=== PATIENT | female | born 1980 | race Caucasian/White ===

== ENCOUNTER 2021-04-24 12:38 | Emergency (ER) | payer MEDICAID, SELFPAY ==
[2021-04-24 12:48] VITALS: BP 104/57; BP 112/72; PULSE 70; PULSE 72; RESP 16; O2SAT 98; BMI 20.5
--- NOTE | 2021-04-24 12:58 | ED.GENADULT ---
HPI - General Adult General Chief complaint: ETOH/Substance Use Stated complaint: not sleeping well, heroin use Time Seen by Provider: 04/24/21 12:58 Source: patient and EMS Mode of arrival: EMS Limitations: no limitations History of Present Illness HPI narrative: 40-year-old female came in for evaluation for possible overdose. This is a 40-year-old female history of drug abuse patient used 10 bags of heroin last night, patient claims that she has been tired not sleeping lost her best friend 2 weeks ago, patient was found by the police in her car sleeping. With pinpoint pupil, but patient was easily arousable. Patient otherwise declined headache, dizziness, chest pain, or abdominal pain. Related Data Allergies Allergy/AdvReac Type Severity Reaction Status Date / Time amoxicillin [AMOXICILLIN] Allergy Unknown DIARRHEA Unverified 06/13/20 16:55 Review of Systems Review of Systems: All other systems are reviewed and are negative Constitutional: Reports as per HPI and Reports no additional constitutional complaints Eyes: Reports as per HPI and Reports no additional eye complaints Reports system reviewed and no additional complaints, except as documented Cardiovascular: Reports as per HPI and Reports no additional cardiovascular complaints Respiratory: Reports as per HPI and Reports no additional respiratory complaints Gastrointestinal: Reports as per HPI and Reports no additional gastrointestinal complaints Genitourinary: Reports no additional female genitourinary complaints Musculoskeletal: Reports no additional musculoskeletal complaints Skin/Breast: Reports system reviewed and no additional complaints, except as docu Psychiatric: Reports no additional psychiatric complaints Endocrine: Reports no additional endocrine complaints Hematologic/Lymphatic: Reports no additional hematologic/lymphatic complaints Allergic/Immunologic: Reports no additional allergic/immunologic complaints Reports system reviewed and no additional complaints, except as documented and Reports Abnormal speech present Physical Exam Vital Signs: Vital Signs: Last Vital Signs Pulse 72 04/24/21 12:48 Resp 16 04/24/21 12:48 BP 104/57 L 04/24/21 12:48 Pulse Ox 98 04/24/21 12:48 Body Mass Index 20.5 Vital signs have been reviewed as appeared to be correct. Blood pressure normal. Heart rate normal. Respiration rate normal. Temperature normal. Oxygen saturation normal. Appearance: Alert. Oriented X3. No acute distress. Head: Normal external exam. Normocephalic. Atraumatic. No Benavides signs noted. No raccoon eyes noted Eyes: Pinpoint pupil. EOMI. Conjunctiva and sclera normal. Eyelids normal. ENT: TM's Normal. Pharynx normal. Uvula midline. Moist mucous membranes. No trismus noted. No drooling noted. No muffled voice noted. Neck: Normal inspection. Neck supple. FROM. No adenopathy. Thyroid Normal. No meningeal signs. No neck mass noted. CVS: Normal heart rate and rhythm. Heart sound normal. No murmurs noted. Pulses normal throughout. Respiratory: No respiratory distress. Painless inspiration. Breath sounds normal. No wheezes/rales/rhonchi noted. Chest nontender. No accessory muscle usage noted or decreased air movement noted. Abdomen: Soft and nontender. Bowel sounds normal in all 4 quadrants. No distention noted. No organomegaly noted. No visible injury noted. Back: No CVA tenderness. Full range of motion noted. Skin: Skin warm and dry. Normal skin color. Normal skin turgor. No rashes/lesions/lacerations noted. Extremities: No lower extremity edema. Extremities exhibit normal range of motion. Extremities nontender. Neuro: Oriented X 3. No motor deficit. No sensory deficit. Reflexes normal. Course Course Course Narrative: Assessment and plan. 40-year-old female found sleeping in the car, patient was known history of IV drug abuser, patient used them in bags of heroin last night but nothing today, patient was supposed to receive methadone today. Patient was in the emergency department able to maintain her airways with stable vital signs. Discharge Plan Discharge Clinical Impression: Substance abuse Patient Disposition: Home, Self-Care Instructions: Polysubstance Abuse (ED) Additional Instructions: Follow-up with your primary doctor.
--- NOTE | 2021-04-24 13:22 | PC.NURSE ---
CPD HAD MULTIPLE BAGS OF PTS BELONGINGS, THESE WERE BAGGED AND LABELED AND PLACED IN DECON. PT CONTINUES TO DENY SI, SHE REMAINS DROWSY BUT AROUSABLE
[2021-04-24 14:53] VITALS: BP 104/56; PULSE 66; RESP 12; TEMP 36.8; O2SAT 96
== END 2021-04-24 15:27 | disposition home or self-care (01) ==
LOC: HO.ED 13:23
PROVIDERS: Emergency Provider Emergency Medicine
DX: T40.1X1A Poisoning by heroin, accidental (unintentional), initial encounter (principal); F11.10 Opioid abuse, uncomplicated; Y92.9 Unspecified place or not applicable; Z71.51 Drug abuse counseling and surveillance of drug abuser
CPT/HCPCS: 99284

== ENCOUNTER 2023-05-12 15:34 | Outpatient (REF) | payer MEDICAID, SELFPAY | END 2023-05-12 15:35 | disposition home or self-care (01) | LOC: HO.CHCLNP 15:34 | PROVIDERS: Visit Provider General Practice | DX: N30.01 Acute cystitis with hematuria (principal) | CPT/HCPCS: 87086; 87088; 87186 ==

== ENCOUNTER 2024-05-29 03:43 | Emergency (ER) | payer MEDICAID, SELFPAY ==
--- NOTE | ~2024-05-29 | US_ITS ---
EXAMINATION: US TRIPLEX LOWER EXTREMITY, LEFT CLINICAL INFORMATION: Left extremity swelling COMPARISON: None available. TECHNIQUE: Color-flow triplex imaging with spectral analysis and compression Doppler were performed on the left lower extremity. FINDINGS: Respiratory variation, normal compression and augmented flow are noted throughout the left lower extremity. The visualized common femoral vein, superficial femoral vein, profunda femoral vein, popliteal vein and midcalf peroneal and posterior tibial venous segments show no evidence of deep venous thrombosis. In the gastric region there is a complex fluid collection likely abscess measuring 5.8 x 2.1 x 2.7 cm. There is a site of cocaine injection as per patient. There is abnormal solitary lymph node seen in the left thigh measuring 3.4 x 1.1 x 1.7 cm. There is no Loera's cyst. US/US venous duplex LE LT IMPRESSION: 1. No evidence of deep venous thrombosis involving the left lower extremity. 2. Complex fluid collection in the left thigh likely abscess. 3. Abnormal solitary lymph node left thigh. Electronically signed by: David Can MD 05/29/2024 08:06 AM EDT RP
--- NOTE | ~2024-05-29 | XR_ITS ---
EXAMINATION: XR TIBIA/FIBULA, LEFT CLINICAL INDICATION: Abscess COMPARISON: None TECHNIQUE: AP and lateral views. FINDINGS: Osseous alignment is anatomic. No acute fracture is seen. There is focal soft tissue swelling medially adjacent to the proximal tibia. There is suggestion of a skin ulceration anteriorly at the level of the mid tibia, for which clinical correlation is recommended. Mild diffuse subcutaneous edema/reticulation also noted. XR/XR tibia fibula LT 2V IMPRESSION: 1. Focal soft tissue swelling medially adjacent to the proximal tibia; considerations include infection/abscess or hematoma in the proper clinical setting. 2. Suggestion of skin ulceration anteriorly at the level of the mid tibia, for which clinical correlation is recommended. Electronically signed by: Ean Marquez MD 05/29/2024 08:06 AM EDT
[2024-05-29 03:46] VITALS: BP 101/64; PULSE 83; RESP 20; TEMP 36.6; O2SAT 96; BMI 20.1
--- OUTSIDE RECORDS SUMMARY | 2024-05-29 05:00 | XMS_ITS | Continuity of Care Document ---
Author Organization [facility] Address [address] [place] [address]- Care Team Providers Care Coiled Tubing Supervisor Name Role Phone Ana Huddleston MD, Aleksey Primary Care Phys ician [place] [facility] [id number] Date(s): 07/10/20 - 09/19/20 [facility] [address] [place] [id number] Attending Physician: Kain Wise MD Admitting Physician: Kain Wise MD Referring Physician: Aleksey Ascencio MD Allergies, Adverse Reactions, Alerts Substance Reaction Severity Status NKA Active Medications Bicillin L-A 2,400,000 units/4 mL intramuscular suspension = 2.4 million_units, Intramuscular, Once, # 1 each, 0 Refills, Soft Stop, 04/03/20 15:42:00 EDT, Suspension Start Date: 04/03/20 Status: Ordered Duoneb Inhalation Solution 1, vials, Neb, Every 4 hours, PRN, Refills 0, Maintenance, 03/27/20 14:11:00 EDT, Inhalation Solution Start Date: 03/27/20 Status: Ordered ferrous sulfate 325 mg oral enteric coated tablet 325 mg, By Mouth, Daily, Refills 0, Maintenance, 03/27/20 14:11:00 EDT Start Date: 03/27/20 Status: Ordered ibuprofen 600 mg oral tablet 1 tablet = 600 mg, By Mouth, 4 times a day, PRN Pain , Moderate, # 56 tablet, 1 Refills, Maintenance Start Date: 12/17/11 Stop Date: 01/14/12 Status: Ordered Methadone = 71 mg, By Mouth, 0 Refills, Maintenance, 03/15/20 15:07:00 EDT, Partial fill upon patient request Start Date: 03/15/20 Status: Ordered Multivit Therapeutic/Minerals Tablet 1 tablet, By Mouth, Daily, 0 Refills, Maintenance, 03/27/20 14:12:00 EDT, Tablet Start Date: 03/27/20 Status: Ordered thiamine 100 mg oral tablet 100 mg, 1, tablet, By Mouth, Daily, Refills 0, Maintenance, 03/27/20 14:12:00 EDT Start Date: 03/27/20 Status: Ordered Vitamin C Tablet = 500 mg, By Mouth, Daily, 0 Refills, Maintenance, 03/27/20 14:11:00 EDT, Tablet Start Date: 03/27/20 Status: Ordered
--- OUTSIDE RECORDS SUMMARY | 2024-05-29 05:01 | XMS_ITS | Continuity of Care Document ---
Author Organization [facility] ter Address [address] [place] [address]- Care Team Providers Care Supervisor Briar Shop Name Role Phone Ana Huddleston MD, Aleksey [facility] En[facility] [place] Date(s): 11/12/21 - 11/12/[address] [address]- Discharge Disposition: A-D/C Home Attending Physician: Patti Zamudio DO Admitting Physician: Patti Zamudio DO Referring Physician: Not on Staff, Referring MD Allergies, Adverse Reactions, Alerts Substance Reaction Severity Status HYDROcodone 1 Active 1pt flips like a fish when taking hydrocodone Immunizations Given and Recorded Vaccine Date Status Refusal Reason SARS-CoV-2 (COVID-19) Ad26 vaccine 02/07/21 Record ed Medications Bactrim DS 800 mg-160 mg oral tablet 1 tablet, By Mouth, 2 times a day, for 7 days, drink plenty of fluids Dosage expressed as trimethoprim, # 14 tablet, 0 Refills, Acute 11/19/21 13:43:00 EST, 11/12/21 13:43:00 EST, Tablet, [id number], Partial fill upon patient request if the p... Start Date: 11/12/21 Stop Date: 11/19/21 Status: Ordered Bactrim DS 800 mg-160 mg oral tablet 1 tablet, By Mouth, 2 times a day, for 7 days, Dosage expressed as trimethoprim drink plenty of fluids, # 14 tablet, 0 Refills, Acute 11/19/21 14:18:00 EST, 11/12/21 14:18:00 EST, Tablet, [id number], Partial fill upon patient request if the p... Start Date: 11/12/21 Stop Date: 11/19/21 Status: Ordered Methadone = 60 mg, By Mouth, Daily, 0 Refills, Maintenance, 03/15/20 15:07:00 EDT, Partial fill upon patient request Start Date: 03/15/20 Status: Ordered Vital Signs Most recent to oldest [Reference Range]: 1 Height 173 cm (11/12/21 12:48 PM) Weight 61.3 kg (11/12/21 12:48 PM) Oxygen Saturation [94-100 %] 98 % (11/12/21 12:48 PM) Pulse Rate [55-90 bpm] 100 bpm *H* (11/12/21 12:48 PM) Body Mass Index [18.5-24.99] 20.48 (11/12/21 12:48 PM) Blood Pressure [90-138/55-84 mm Hg] 95/5 3mm Hg (11/12/21 12:48 PM) Respiratory Rate [16-30 br/min] 14 br/mi n *L* (11/12/21 12:48 PM) Temperature [96.8-100.4 DegF] 98.3 DegF (11/12/21 12:48 PM) Mode of Delivery (Oxygen) Room air (11/12/21 12:48 PM) Blood pressure sites Arm, right (11/12/21 12:48 PM) Temperature Route Oral (11/12/21 12:48 PM) Dry Weight 61.3 kg (11/12/21 12:48 PM) Weight Obtained Via Patient/family state d (11/12/21 12:48 PM) Dry Weight Obtained Via Patient/family s tated (11/12/21 12:48 PM)
--- OUTSIDE RECORDS SUMMARY | 2024-05-29 05:01 | XMS_ITS | Continuity of Care Document ---
Author Organization [facility] Infect[facility] Disease Address [address] [place] [address]- Care Team Providers Care Wing Commander Name Role Phone Ana Huddleston MD, Aleksey Primary Care Phys [facility] Encounter [facility] Date(s): 05/21/20 - 06/20/20 [facility] [address] [place] [address]- [facility] Attending Physician: Ely Luna Admitting Physician: AdmEly moore Referring Physician: Admtr, Ar8 Allergies, Adverse Reactions, Alerts Substance Reaction Severity [...]
--- OUTSIDE RECORDS SUMMARY | 2024-05-29 05:01 | XMS_ITS | Continuity of Care Document ---
Author Organization [facility] Address [address] [place] [address]- Care Team Providers Care Relay Dispatcher Name Role Phone Ana Huddleston MD, Aleksey Primary Care Phys [facility] Encounter [facility] [place] 08/20/20 - 09/19/20 [facility] [address] [place], [place] [address] Attending Physician: Ely Luna Admitting Physician: AdmtrEly Referring Physician: Admtr, Ar8 Allergies, Adverse Reactions, [...]
--- OUTSIDE RECORDS SUMMARY | 2024-05-29 05:01 | XMS_ITS | Continuity of Care Document ---
Author Organization [facility] ter Address [address] [place] [address]- Care Team Providers Care Machine Cutter Name Role Phone Ana Huddleston MD, Aleksey [facility] [place] [facility] [place](s): 03/15/20 - 03/27/[address] [address]- [facility] Discharge Disposition: Transfer Vp Treasurer Care Attending Physician: Joaquim Martinez MD Admitting Physician: Pastor Neves MD Referring Physician: Pastor Neves MD Allergies, Adverse Reactions, Alerts Substance Reaction Severity Status NKA Active Medications ceFAZolin 2 g/50 mL-NaCl 0.9% intravenous solution = 2 Gm, IVPB, Every 8 hours, # 1 Unknown, 0 Refills, Maintenance, 03/27/20 14:33:00 EDT Start Date: 03/27/20 Stop Date: 05/10/20 Status: Ordered Duoneb Inhalation Solution 1, vials, [...] EDT, Tablet Start Date: 03/27/20 Status: Ordered Results Orders for Microbiology Reports Name Date Blood Culture 03/20/20 Blood Culture #2 03/20/20 Blood Culture 03/17/20 Blood Culture #2 03/17/20 Blood Culture 03/16/20 Blood Culture (BLOOD CULTURE) 03/16/20 Microbiology Reports TEST:Blood Culture, Second Order STATUS:Auth (Verified) BODY SITE: SOURCE:Blood COLLECTED DATE/TIME:03/20/20 10:50 AM Blood Culture, Second Order SPECIMEN DESCRIPTION : BLOOD RAC SPECIAL REQUESTS : NONE CULTURE : NO GROWTH 5 DAYS. REPORT STATUS : FINAL 03/25/2020 TEST:Blood Culture STATUS:Auth (Verified) BODY SITE: SOURCE:Blood COLLECTED DATE/TIME:03/20/20 10:15 AM Blood Culture SPECIMEN DESCRIPTION : BLOOD RAC SPECIAL REQUESTS : NONE CULTURE : NO GROWTH 5 DAYS. REPORT STATUS : FINAL 03/25/2020 TEST:Blood Culture, Second Order STATUS:Auth (Verified) BODY SITE: SOURCE:Blood COLLECTED DATE/TIME:03/17/20 5:00 AM Blood Culture, Second Order SPECIMEN DESCRIPTION : BLOOD R LOWER ARM SPECIAL REQUESTS : NONE CULTURE : NO GROWTH 5 DAYS. REPORT STATUS : FINAL 03/22/2020 TEST:Blood Culture STATUS:Auth (Verified) BODY SITE: SOURCE:Blood COLLECTED DATE/TIME:03/17/20 4:40 AM Blood Culture SPECIMEN DESCRIPTION : BLOOD R ARM SPECIAL REQUESTS : NONE CULTURE : NO GROWTH 5 DAYS. REPORT STATUS : FINAL 03/22/2020 TEST:Blood Culture STATUS:Auth (Verified) BODY SITE: SOURCE:Blood COLLECTED DATE/TIME:03/16/20 10:49 AM Blood Culture SPECIMEN DESCRIPTION : BLOOD R SPECIAL REQUESTS : CRITICAL VALUE CALLED AND VERIFIED BY READBACK FOR: GRAM POSITIVE COCC IN BLOOD CULTURE TO EMPLOYEE 80647 (M5) BY TECH 85 AT 1300 03/17/20 CULTURE : STAPHYLOCOCCUS AUREUS. S. aureus was identified by multi-plex PCR. MecA NOT detected. The absence of the mecA gene is associated with susceptibility to methicillin (MSSA). REPORT STATUS : FINAL 03/19/2020 ORGANISM STAPHYLOCOCCUS AUREUS. METHOD MIN. INHIB. CONC. (MCG/ML) CIPROFLOXACIN SUSCEPTIBLE CLINDAMYCIN SUSCEPTIBLE ERYTHROMYCIN SUSCEPTIBLE LEVOFLOXACIN SUSCEPTIBLE OXACILLIN SUSCEPTIBLE PENICILLIN RESISTANT RIFAMPIN SUSCEPTIBLE RIFAMPIN RIFAMPIN SHOULD NOT BE USED ALONE FOR ANTIMICROBIAL RIFAMPIN THERAPY. TETRACYCLINE SUSCEPTIBLE TRIMETH/SULFAMETHOX SUSCEPTIBLE VANCOMYCIN SUSCEPTIBLE TEST:Blood Culture STATUS:Auth (Verified) BODY SITE: SOURCE:Blood COLLECTED DATE/TIME:03/16/20 10:10 AM Blood Culture SPECIMEN DESCRIPTION : BLOOD R NECK CENTRAL SPECIAL REQUESTS : NONE CULTURE : NO GROWTH 5 DAYS. REPORT STATUS : FINAL 03/21/2020 Vital Signs Most recent to oldest [Reference Range]: 1 2 3 Height 172 cm (03/27/20 3:12 PM) 172 cm (03/27/20 7:33 AM) 172 cm (03/27/20 2:29 AM) Weight 50.9 kg (03/26/20 3:03 AM) 51.5 kg (03/25/20 4:54 AM) 51.4 kg (03/24/20 2:29 AM) Oxygen Saturation [94-100 %] 94 % (03/27/20 3:12 PM) 92 % *L* (03/27/20 7:33 AM) 93 % *L* (03/27/20 2:29 AM) Pulse Rate [55-90 bpm] 101 bpm *H* (03/27/20 3:12 PM) 96 bpm *H* (03/27/20 7:33 AM) 109 bpm *H* (03/27/20 2:29 AM) Body Mass Index [18.5-24.99] 17.21 *L* (03/26/20 3:03 AM) 17.37 *L* (03/24/20 2:29 AM) 17.75 *L* (03/23/20 2:39 AM) Blood Pressure [90-138/55-84 mm Hg] 123/70mm Hg (03/27/20 3:12 PM) 118/69mm Hg (03/27/20 7:33 AM) 120/74mm Hg (03/27/20 2:29 AM) Respiratory Rate [16-30 br/min] 18 br/min (03/27/20 3:12 PM) 18 br/min (03/27/20 10:01 AM) 18 br/min (03/27/20 8:47 AM) Temperature [96.8-100.4 DegF] 98.4 DegF (03/27/20 3:12 PM) 98.5 DegF (03/27/20 7:33 AM) 98.6 DegF (03/27/20 2:29 AM) Liters per Minute 2 L/min (03/22/20 9:04 PM) 2 L/min (03/21/20 9:41 PM) 2 L/min (03/21/20 3:28 AM) Mode of Delivery (Oxygen) Room air (03/27/20 3:12 PM) Room air (03/27/20 7:33 AM) Room air (03/27/20 2:29 AM) Blood pressure sites Arm, left (03/27/20 3:12 PM) Arm, left (03/27/20 7:33 AM) Arm, left (03/27/20 2:29 AM) Temperature Route Oral (03/27/20 3:12 PM) Oral (03/27/20 7:33 AM) Oral (03/27/20 2:29 AM) Dry Weight 54.4 kg (03/15/20 2:57 PM) Weight Obtained Via Bed scale (03/26/20 3:03 AM) Bed scale (03/25/20 4:54 AM) Bed scale (03/24/20 2:29 AM)
--- OUTSIDE RECORDS SUMMARY | 2024-05-29 05:01 | XMS_ITS | Continuity of Care Document ---
Author Organization [facility] Address [address] [place] [address]- Care Team Providers Care Machine Adjuster Leader Case Trim Name Role Phone Ana Huddleston MD, Aleksey Primary Care Phys ician [place] [facility] [place](s[place] 08/14/21 - 08/19/[address] [address] Discharge Disposition: A-D/C Home Attending Physician: Saritha Candelaria MD, Edis Catalan Admitting Physician: Barbara Sneed DO Referring Physician: Not on Staff, Referring MD Allergies, Adverse Reactions, Alerts Substance Reaction Severity Status NKA Active Immunizations Given and Recorded Vaccine Date Status Refusal Reason SARS-CoV-2 (COVID-19) Ad26 vaccine 02/07/21 Record ed Medications Methadone = 60 mg, By Mouth, Daily, 0 Refills, Maintenance, 03/15/20 15:07:00 EDT, Partial fill upon patient request Start Date: 03/15/20 Status: Ordered methadone 10 mg oral tablet 65 mg, Tablet, By Mouth, 08/19/21 9:00:00 EST Start Date: 08/19/21 Stop Date: 08/19/21 Status: Completed midodrine 5 mg oral tablet 10 mg, Tablet, By Mouth, Hold if SBP >120, 08/19/21 9:00:00 EST Start Date: 08/19/21 Stop Date: 08/19/21 Status: Completed Results Orders for Microbiology Reports Name Date Blood Culture 08/13/21 Blood Culture #2 08/13/21 Microbiology Reports TEST:Blood Culture, Second Order STATUS:Auth (Verified) BODY SITE: SOURCE:Blood COLLECTED DATE/TIME:08/13/21 11:07 PM Blood Culture, Second Order SPECIMEN DESCRIPTION : BLOOD LAC SPECIAL REQUESTS : NONE CULTURE : NO GROWTH 5 DAYS. REPORT STATUS : FINAL 08/19/2021 TEST:Blood Culture STATUS:Auth (Verified) BODY SITE: SOURCE:Blood COLLECTED DATE/TIME:08/13/21 10:39 PM Blood Culture SPECIMEN DESCRIPTION : BLOOD RAC SPECIAL REQUESTS : NONE CULTURE : NO GROWTH 5 DAYS. REPORT STATUS : FINAL 08/19/2021 Radiology Reports * Exam Date Time Procedure Performing Provider Status 08/13/21 10:23 PM Chest 2 Views Frontal and Lat AndrewEdna perez; Auth (Verified) Notes: (Chest 2 Views Frontal and Lat) Reason For Exam: Chest Pain;Other: RESULT: Chest 2 Views Frontal and Lat Chest 2 Views Frontal and Lat Hx of Present Illness: pt reports 2 days of cough and SOB. normally on methadone but states she hasfelt so unwell that she hasnt been able to take it. heroin use today. also reports recent exposureto hep b and would like to get tested. ; Reason: Other:; Chest Pain; Clinical Question(s): Other: COMPARISON: None. FINDINGS: LINES AND TUBES: None. LUNGS AND PLEURA: Prominence of the interstitial markings bilaterally. Previous examination demonstrated findings of septic emboli. Today's examination appears improved. No pleural effusion. No pneumothorax. HEART, MEDIASTINUM AND HAJA: Heart is normal in size. Normal upper mediastinal and hilar contour. BONES AND SOFT TISSUES: No acute abnormality. IMPRESSION: Prominent bilateral interstitial markings likely improved compared to CT scan of the chest 03/17/2020. WSN: [id number] Ordering Physician: Erickson Cervantes Dictated By: Lasha Avalos MD Dictated Date/Time: 08/13/21 10:26 p Reviewed By: Lasha Avalos MD Signed By: Lasha Avalos MD Signed Date/Time: 08/13/21 10:26 pm Transcribed By: BASIL Transcribed Date/Time: 08/13/21 10:24 pm Vital Signs Most recent to oldest [Reference Range]: 1 2 3 Height 172.72 cm (08/19/21 6:25 AM) 172.72 cm (08/18/21 11:48 PM) 172.72 cm (08/18/21 7:02 AM) Weight 58 kg (08/15/21 10:20 PM) Oxygen Saturation [94-100 %] 95 % (08/19/21 4:00 PM) 95 % (08/19/21 6:25 AM) 95 % (08/18/21 11:48 PM) Pulse Rate [55-90 bpm] 82 bpm (08/19/21 4:00 PM) 96 bpm *H* (08/19/21 10:11 AM) 56 bpm (08/19/21 6:25 AM) Body Mass Index [18.5-24.99] 19.44 (08/15/21 10:20 PM) Blood Pressure [90-138/55-84 mm Hg] 125/72mm Hg (08/19/21 4:00 PM) 111/61mm Hg (08/19/21 10:11 AM) 95/54mm Hg (08/19/21 6:25 AM) Respiratory Rate [16-30 br/min] 18 br/min (08/19/21 4:00 PM) 18 br/min (08/19/21 11:11 AM) 18 br/min (08/19/21 10:11 AM) Temperature [96.8-100.4 DegF] 97.8 DegF (08/19/21 4:00 PM) 97.1 DegF (08/19/21 6:25 AM) 97.4 DegF (08/18/21 11:48 PM) Liters per Minute 1.5 L/min (08/18/21 5:00 PM) 1.5 L/min (08/18/21 10:00 AM) 1 L/min (08/17/21 5:54 AM) Mode of Delivery (Oxygen) Room air (08/19/21 4:00 PM) Room air (08/19/21 6:25 AM) Room air (08/18/21 11:48 PM) Blood pressure sites Arm, left (08/19/21 4:00 PM) Arm, left (08/19/21 6:25 AM) Arm, right (08/18/21 11:48 PM) Temperature Route Oral (08/19/21 4:00 PM) Oral (08/19/21 6:25 AM) Oral (08/18/21 11:48 PM) Dry Weight 58 kg (08/15/21 10:20 PM)
[2024-05-29 06:47] LABS: MANUAL DIFF FLAG NO
[2024-05-29 06:49] LABS: Basophils Absolute Auto 0.1 X10*3/uL (0.0-0.2); Basophils Percent Auto 0.7 % (0-2); Eosinophils Absolute Auto 0.1 X10*3/uL (0.0-0.4); Eosinophils Percent Auto 1.7 % (0-4); Hemoglobin 12.6 g/dl (12.0-16.0); Imm Gran Abs Auto 0.02 X10*3/uL (0.00-0.03); Imm Gran Pct Auto 0.3 % (0.0-0.4); Lymphocytes Absolute Auto 2.4 X10*3/uL (1.2-4.9); Lymphocytes Percent Auto 32.1 % (20-40); Mean Corpuscular HGB Conc 33.2 g/dl (31.0-35.0); Mean Corpuscular Volume 87.6 fL (80.0-98.0); Mean Platelet Volume 9.4 fL (9.4-12.3); Monocytes Absolute Auto 0.5 X10*3/uL (0.1-1.2); Monocytes Percent Auto 7.1 % (2-11); Neutrophils Absolute Auto 4.3 x10*3/uL (2.0-8.3); Neutrophils Percent Auto 58.1 % (45-73); Platelet Count 224 X10*3/uL (160-400); Red Blood Count 4.34 X10*6/uL (4.20-5.50); Red Cell Distribution Width 13.7 % (11.0-16.0); White Blood Count 7.4 X10*3/uL (4.8-10.8)
[2024-05-29 07:00] LABS: Lactic Acid 0.9 mmol/L (0.5-2.0)
--- NOTE | 2024-05-29 07:02 | ED_ITS ---
HPI - Skin/Abscess/Foreign Bdy General Chief complaint: Skin/Abscess/Foreign Body Stated complaint: Left leg infection Time Seen by Provider: 05/29/24 06:37 Source: patient, RN notes reviewed and old records reviewed Mode of arrival: ambulatory History of Present Illness ED Provider: Ashley Garcia PA-C HPI narrative: 43-year-old female with past medical history of IVDA presenting to the ED complaining painful draining abscess to LLE x4-5 days. Reports subjective fever at home. Admits has been self draining at home without. Admits to injecting cocaine and heroin. Denies ETOH use. Denies chills CP/SOB, abdominal pain. Related Data Previous Rx's ?Medication ?Instructions ?Recorded cephalexin 500 mg capsule 500 mg PO QID 10 days #40 caps 05/29/24 doxycycline hyclate 100 mg tablet 100 mg PO BID 10 days #20 tabs 05/29/24 Allergies Allergy/AdvReac Type Severity Reaction Status Date / Time amoxicillin [AMOXICILLIN] Allergy Unknown DIARRHEA Verified 05/29/24 09:11 Review of Systems 2 Review of Systems: Yes all other systems are reviewed and are negative Constitutional: Constitutional: Reports as per HPI [facility] Past Medical History Attestation statement: The following information was validated with the patient. Source: old records reviewed Social History Social History Advance Directives: No Advance Directives Information Provided: Yes Physical Exam 2 Vital Signs: Vital Signs: Last Vital Signs Temp 97.7 F 05/29/24 09:26 Pulse 62 05/29/24 09:26 Resp 16 05/29/24 09:26 BP 99/59 L 05/29/24 09:26 Pulse Ox 96 05/29/24 08:00 O2 Del Method Room Air 05/29/24 08:00 BMI result Body Mass Index 20.1 Const: General: cooperative, healthy appearing and no acute distress O rientation/consciousness: patient oriented x3 Limitations: no limitations HEENT: Head: Yes normal to inspection and Yes atraumatic Ears: hearing grossly normal bilaterally General nose exam: Normal external nose present Face and sinus: Yes normal facial exam Eyes: General: appearance normal, both eyes and all related structures EOM: EOMs intact bilaterally Neck: Neck: Yes normal visual inspection and Yes no meningeal signs Resp: Effort & Inspection: normal respiratory effort and no respiratory distress Auscultation: clear to auscultation bilaterally Cardio: Rate: regular rate Heart sounds: S1 normal heart sound present and S2 normal heart sound present GI: Inspection: Yes normal to inspection Palpation (GI): Soft to palpation, nontender, no guarding and not rigid : General: Yes no CVA tenderness Back/Spine/Pelvis: Back: no CVA tenderness Skin: Other: track price Rashes: no rashes Neuro: General: patient oriented x3, tone normal and no meningeal signs C ranial nerves: Yes CN's II-XII intact bilaterally Gait exam (Neuro): Normal gait present Extrem: Other: Please refer to images above. LLE with fluctuant and indurated abscess with surrounding erythema, warmth, and tenderness. Not circumferential. Pitting edema appreciated to LLE. NV intact distally. Course Course Course Narrative: -unable to obtain IV access patient after multiple times. Will give p.o. antibiotics. Does not meet sepsis criteria -no leukocytosis. ESR/CRP elevated. AST/ALT elevated. -lactic acid WNL XR tibia fibula LT 2V IMPRESSION: 1. Focal soft tissue swelling medially adjacent to the proximal tibia; considerations include infection/abscess or hematoma in the proper clinical setting. 2. Suggestion of skin ulceration anteriorly at the level of the mid tibia, for which clinical correlation is recommended. US venous duplex LE LT IMPRESSION: 1. No evidence of deep venous thrombosis involving the left lower extremity. 2. Complex fluid collection in the left thigh likely abscess. 3. Abnormal solitary lymph node left thigh. > abscess I&D in the ED with copious pus expressed. Results discussed with patient including worrisome signs and symptoms and strict return precautions, and when to return to the emergency department. They verbalized understanding and feel safe for discharge at this time. Medications Administered Discontinued Medications Generic Name Dose Route Start Last Admin Trade Name Freq PRN Reason Stop Dose Admin Cephalexin HCl 500 mg 05/29/24 07:54 05/29/24 09:22 Cephalexin 500 Mg Capsule PO 05/29/24 07:55 500 mg ONCE ONE Administration Doxycycline Monohydrate 100 mg 05/29/24 07:54 05/29/24 09:17 Doxycycline Monohydrate 100 Mg Capsule PO 05/29/24 07:55 100 mg ONCE ONE Administration Lidocaine HCl 5 ml 05/29/24 07:04 05/29/24 09:12 Lidocaine Hcl 1 % Mpf 5 Ml Vial EPIDURAL 05/29/24 07:05 5 ml ONCE ONE Administration Medical Decision Making Medical Decision Making [facility] Narrative: 43-year-old female with past medical history of IVDA presenting to the ED complaining painful draining abscess to LLE x4-5 days. On exam vital signs stable, NAD, nontoxic appearing, physical exam as noted above. Please refer to image. Concern for abscess with surrounding cellulitis vs bacteremia. DVT on differential however lower. Rule out osteomyelitis. Low suspicion for severe sepsis at this time Plan: Labs, lactic/blood cultures, x-ray, ultrasound, IV antibiotics, +/- admission Please refer to course for remaining clinical decision making, interpretation of labs/imaging results, and discussions with consultants and/or family members. Differential Diagnosis Differential Diagnoses: The differential diagnosis associated with the presentation includes As above Admission/Observation Consideration of admission/observation: Escalation of care including admission/observation considered Lab Data [facility] Lab Attestation statement: I reviewed the patient's lab results. 05/29/24 06:41 05/29/24 06:41 Labs: Lab Results 05/29/24 Range/Units 06:41 WBC 7.4 (4.8-10.8) X10*3/uL RBC 4.34 (4.20-5.50) X10*6/uL Hgb 12.6 (12.0-16.0) g/dl Hct 38.0 (37.0-47.0) % MCV 87.6 (80.0-98.0) fL MCH 29.0 (27.0-33.0) pg MCHC 33.2 (31.0-35.0) g/dl RDW 13.7 (11.0-16.0) % Plt Count 224 (160-400) X10*3/uL MPV 9.4 (9.4-12.3) fL Immature Gran % (Auto) 0.3 (0.0-0.4) % Neut % (Auto) 58.1 (45-73) % Lymph % (Auto) 32.1 (20-40) % [place] % (Auto) 7.1 (2-11) % Eos % (Auto) 1.7 (0-4) % Baso % (Auto) 0.7 (0-2) % Lymph # (Auto) 2.4 (1.2-4.9) X10*3/uL [place] # (Auto) 0.5 (0.1-1.2) X10*3/uL Eos # (Auto) 0.1 (0.0-0.4) X10*3/uL Baso # (Auto) 0.1 (0.0-0.2) X10*3/uL Abs Immat Gran (auto) 0.02 (0.00-0.03) X10*3/uL Absolute Neuts (auto) 4.3 (2.0-8.3) x10*3/uL Absolute Nucleated RBC 0.000 (0.0-0.012) X10*3/uL Nucleated RBC % (auto) 0.0 (0.0-0.2) /100WBC ESR 72 H (0-20) MM/HR Sodium 135 (135-145) mmol/L Potassium 4.0 (3.3-5.1) mmol/L Chloride 102 (96-108) mmol/L Carbon Dioxide 22 (22-29) mmol/L Anion Gap 15 (12-20) BUN 8 L (9-16) mg/dL Creatinine 0.72 (0.5-1.4) mg/dL Estim Creat Clear Calc 94.2 Estimated GFR > 60 Random Glucose 73 (60-115) mg/dL Lactic Acid 0.9 (0.5-2.0) mmol/L Calcium 9.3 (8.4-10.2) mg/dL Total Bilirubin 0.4 (0.0-1.0) mg/dL AST 72 H (5-31) U/L ALT 79 H (0-31) U/L Alkaline Phosphatase 89 (39-117) U/L C-Reactive Protein 7.40 H (< or = 0.50) mg/dL Total Protein 9.0 H (6.5-8.0) g/dL Albumin 3.5 (3.5-5.0) g/dL Independent Interpretation I performed an independent interpretation of an: Plain X-Ray and Ultrasound Radiology Impression Discussion of test interpretation with radiology: I have reviewed the radiologist's reading. External Record Review External record reviewed: Inpatient record, Office record, Outpatient record, Prior outpatient labs, Prior outpatient radiology, Primary care record and Outside ED record Tests considered The following testing was considered but not selected: As above Prescription Management I considered prescription management with: Pain Medication Chronic Conditions Patient?s care impacted by: Other Social Determinants Patient?s care significantly limited by Social Determinants of Health including: Low income, Alcoholism and drug addiction in family and Problems related to primary support group Discharge Plan Discharge Clinical Impression: Cellulitis, Abscess of skin or subcutaneous tissue Patient Disposition: Home, Self-Care Instructions: Cellulitis (DC), Abscess (ED) Additional Instructions: Your abscess was drained today in the emergency department. Please apply warm compresses Doxycycline and Keflex for antibiotics please take as prescribed until completion Your blood work was reassuring, as well as her x-ray and ultrasound If symptoms persist or worsen, area becomes more infected, you have fever or worsening redness return to the ED Prescriptions: New cephalexin 500 mg capsule 500 mg PO QID 10 Days Qty: 40 0RF doxycycline hyclate 100 mg tablet 100 mg PO BID 10 Days Qty: 20 0RF Referrals: Physician,Unknown J [Primary Care Provider] - 5 days Interventions: ED Discharge Assessment Last Done: 05/29/24 09:26 Discharge Date/Time: 05/29/24 09:29 Print Language: Ni[place]an
[2024-05-29 07:05] LABS: Alanine Aminotransferase 79 U/L (0-31); Albumin Level 3.5 g/dL (3.5-5.0); Alkaline Phosphatase 89 U/L (39-117); Anion Gap 15 (12-20); Aspartate Amino Transferase 72 U/L (5-31); Bilirubin Total 0.4 mg/dL (0.0-1.0); Blood Urea Nitrogen 8 mg/dL (9-16); Calcium 9.3 mg/dL (8.4-10.2); Carbon Dioxide 22 mmol/L (22-29); Chloride 102 mmol/L (96-108); Creatinine Clr Calc Pharmacy 94.2; Estimated Glomerular Filt Rate > 60; Glucose Random 73 mg/dL (60-115); Sodium 135 mmol/L (135-145)
[2024-05-29 07:31] LABS: Erythrocyte Sedimentation Rate 72 MM/HR (0-20)
[2024-05-29 08:00] VITALS: BP 99/59; PULSE 62; RESP 18; TEMP 36.5; O2SAT 96
[2024-05-29] MEDS: Lidocaine HCl 1 % MPF 5 ML VIAL EPIDURAL (09:12)
[2024-05-29] MEDS: Doxycycline Monohydrate 100 MG CAPSULE PO (09:17)
[2024-05-29] MEDS: cephALEXin 500 MG CAPSULE PO (09:22)
[2024-05-29 09:26] VITALS: BP 99/59; PULSE 62; RESP 16; TEMP 36.5
== END 2024-05-29 09:29 | disposition home or self-care (01) ==
PROVIDERS: Emergency Provider Emergency Medicine
DX: L03.116 Cellulitis of left lower limb (principal); L02.416 Cutaneous abscess of left lower limb; R50.9 Fever, unspecified; M79.605 Pain in left leg; F19.10 Other psychoactive substance abuse, uncomplicated
CPT/HCPCS: 36415; 73590; 80053; 83605; 85025; 85652; 86140; 87040; 93971; 99283; 99284